=== PATIENT | female | born 1945 | race Two or more races ===

== ENCOUNTER 2018-03-22 06:10 | Day surgery (SDC) | payer OTHER ==
[~2018-03-22 06:10] MED LIST: ADULT ASPIRIN81 MG PO; AVALIDE 150-12.1 TA1 PO; AVAPRO150 MG PO; AZITHROMYCIN500 MG PO; EFFEXOR XR37.5 MG PO; GANI-TUSS-DM N473 ML PO; LIBRAX CAPSULE1 CA1 PO; LOSARTAN-HCTZ1 EAC2 PO; METROPOL PO; PRILOSEC10 MG PO
[2018-03-22] MEDS ORDERED: PERCOCET 5-3251 EACH PO (11:43)
[2018-03-22] MEDS ORDERED: NABUMETONE500 MG PO (11:43)
== END 2018-03-22 14:30 | disposition home or self-care (01) ==
LOC: CIR.AMB 06:10
DX: M23.311 Other meniscus derangements, anterior horn of medial meniscus, right knee (principal); M23.321 Other meniscus derangements, posterior horn of medial meniscus, right knee; M94.261 Chondromalacia, right knee; M65.861 Other synovitis and tenosynovitis, right lower leg; M13.861 Other specified arthritis, right knee

== ENCOUNTER 2019-04-15 07:20 | Outpatient (CLI) | payer OTHER ==
[~2019-04-15 07:20] MED LIST changes: +NABUMETONE500 MG PO; +PERCOCET 5-3251 EACH PO
== END 2019-04-15 07:27 | disposition home or self-care (01) ==
LOC: NUCLEAR 07:20
DX: I67.89 Other cerebrovascular disease (principal); R09.89 Other specified symptoms and signs involving the circulatory and respiratory systems

== ENCOUNTER → 2019-08-14 | Outpatient (CLI) | payer OTHER | END | disposition home or self-care (01) | LOC: RX STUDY 07:23 | DX: R13.19 Other dysphagia (principal) ==

== ENCOUNTER 2020-05-14 10:11 | Outpatient (CLI) | payer OTHER | END 2020-05-14 10:13 | disposition home or self-care (01) | LOC: NUCLEAR 10:11 | PROVIDERS: ATTEND Internal Medicine Cardiovascular Disease | DX: I73.9 Peripheral vascular disease, unspecified (principal) ==

== ENCOUNTER 2022-11-28 10:55 | Outpatient (CLI) | payer OTHER | END 2022-11-28 10:57 | disposition home or self-care (01) | LOC: NUCLEAR 10:55 | PROVIDERS: ATTEND Internal Medicine Cardiovascular Disease | DX: I87.2 Venous insufficiency (chronic) (peripheral) (principal) ==

== ENCOUNTER → 2025-04-03 10:50 | Outpatient (CLI) | payer OTHER | END | disposition home or self-care (01) | LOC: NUCLEAR 10:50 | PROVIDERS: ATTEND Surgery | DX: I83.893 Varicose veins of bilateral lower extremities with other complications (principal); L97.919 Non-pressure chronic ulcer of unspecified part of right lower leg with unspecified severity ==